=== PATIENT | female | born 1990 | race African-American/Black ===

== ENCOUNTER 2017-04-01 12:02 | Emergency (ER) | payer SELFPAY ==
[2017-04-01 12:08] VITALS: BP 103/68; BMI 23.3
--- NOTE | 2017-04-01 15:04 | DR.GENAD ---
HPI - PCP Primary Care Physician: NFD - Complaint/Symptoms Chief Complaint Doctors Comments: L chest wall pain after draining abscess in ED at [place] a couple of days ago. Chief Complaint:: PATIENT HAD SOMETHING BITE HER SEVERAL WEEKS AGO. SHE WAS SEEN IN [facility] WEDNESDAY NIGHT AND THEY CUT IT BUT SHE STATED IT HURTS AND IS DRAINIING - Nurses notes reviewed Nurses Notes Review: Yes - Source History Provided: Patient - Mode of Arrival Mode of Arrival: Ambulatory - Timing Onset of Chief Complaint: 03/21/17 Came on: Gradually - Duration Duration: Intermittent How lon Duration: Days - Severity Severity: Moderate - Associated Signs and Symptoms Associated Signs and Symptoms: none PMH - PMH Past Medical History: No Past Surgical History: No - Family History History of Family Medical Conditions: No - Social History Does patient currently use any type of tobacco product: Yes Have you used tobacco products in the last 12 months: Yes Type of Tobacco Use: Cigarettes How many years tobacco product used: 2 Does any household member use tobacco: Yes Alcohol Use: Occasionally Do you use any recreational Drugs:: No Lives With: Family Lives Where: Home - infectious screening In the last 2 months have you had wt loss of >10#?: NO Have you had fever, night sweats or hemotysis?: No Have you traveled outside the country in the last 6 months?: No Isolation: Standard ROS - Review of Systems Constitutional: No Symptoms Reported Respiratoy: No Symptoms Reported Cardiovascular: No Symptoms Reported Gastrointestinal/Abdominal: No Symptoms Reported Genitourinary: No Symptoms Reported Neurological: No Symptoms Reported Integumentary: Wound (L chest wall cystic mass) Endocrine: No Symptoms Reported PE - Vital Signs Vitals: Temperature 98.7 F Pulse Rate 74 Respiratory Rate 16 Blood Pressure 103/68 O2 Sat by Pulse Oximetry 100 - General General Appearance: Alert, In No Apparent Distress - Head Head Exam: Normal Inspection - Neck Neck Exam: Normal Inspection, Full ROM - Chest Chest Inspection: Abscess (abscess at lateral third of the clavicle, skin red indurated and TTP with serous drainage) ROR - Labs Reviewed Result Diagrams: 04/01/17 15:20 Laboratory: WBC 4.0 X10^3/uL (3.6-10.0) 04/01/17 15:20 RBC 4.41 X10^6/uL (3.5-5.4) 04/01/17 15:20 Hgb 12.8 g/dL (12.0-16.0) 04/01/17 15:20 Hct 38.2 % (36.0-47.0) 04/01/17 15:20 MCV 86.5 fL (80.0-100.0) 04/01/17 15:20 MCH 29.0 pg (27.0-34.0) 04/01/17 15:20 MCHC 33.5 g/dL (33.0-35.0) 04/01/17 15:20 RDW 16.5 % (11.6-16.5) 04/01/17 15:20 Plt Count 148 X10^3/uL (150.0-450.0) L 04/01/17 15:20 MPV 8.9 fL (7.4-11.0) 04/01/17 15:20 Neut % 35.0 % (42.0-75.0) L 04/01/17 15:20 Lymph % 53.2 % (21.0-51.0) H 04/01/17 15:20 [place] % 9.4 % (0.0-13.0) 04/01/17 15:20 Eos % 1.8 % (0.9-2.9) 04/01/17 15:20 Baso % 0.6 % (0.2-1.0) 04/01/17 15:20 Neut # 1.4 x10^3/uL (2.2-4.8) L 04/01/17 15:20 Lymph # 2.1 X10^3/uL (1.3-2.9) 04/01/17 15:20 [place] # 0.4 x10^3/uL (0.3-0.8) 04/01/17 15:20 Eos # 0.1 x10^3/uL (0.0-0.2) 04/01/17 15:20 Baso # 0.0 X10^3/uL (0.0-0.1) 04/01/17 15:20 Absolute Nucleated RBC 0.0 /100WBC 04/01/17 15:20 - Diagnosis Discharge Problem: Abscess - Discharge Plan Disposition: 01 HOME, SELF-CARE Condition: Stable Prescriptions: Ibuprofen [Motrin Tab 800 mg] 800 mg PO DAILY PRN #30 tab PRN Reason: Pain/Inflammation Sulfamethoxazole-Trimethoprim [BACTRIM DS TAB 800/160 MG *] 1 tab PO BID #20 tab - Follow ups/Referrals Follow ups/Referrals: NFD,None [Primary Care Provider] - 3 days - Instructions Instructions: Abscess, Incision and Drainage, Care After
[2017-04-01] MEDS ORDERED: TORADOL 60 MG VIAL IM ONE (15:06)
[2017-04-01] MEDS ORDERED: LEVAQUIN TAB 500 MG PO STA (15:06)
[2017-04-01] MEDS ORDERED: LEVAQUIN TAB 500 MG ONE (15:17)
[2017-04-01] MEDS ORDERED: TORADOL 60 MG VIAL ONE (15:17)
[2017-04-01 15:31] LABS: BASOPHILS % (AUTO) 0.6 % (0.2-1.0); EOSINOPHILS # (AUTO) 0.1 x10^3/uL (0.0-0.2); EOSINOPHILS % (AUTO) 1.8 % (0.9-2.9); HEMATOCRIT 38.2 % (36.0-47.0); HEMOGLOBIN 12.8 g/dL (12.0-16.0); LYMPHOCYTES # (AUTO) 2.1 X10^3/uL (1.3-2.9); LYMPHOCYTES % (AUTO) 53.2 % (21.0-51.0); MEAN CORPUSCULAR HGB CONC 33.5 g/dL (33.0-35.0); MEAN CORPUSCULAR VOLUME 86.5 fL (80.0-100.0); MEAN PLATELET VOLUME 8.9 fL (7.4-11.0); MONOCYTES # (AUTO) 0.4 x10^3/uL (0.3-0.8); MONOCYTES % (AUTO) 9.4 % (0.0-13.0); NEUTROPHILS # (AUTO) 1.4 x10^3/uL (2.2-4.8); PLATELET COUNT 148 X10^3/uL (150.0-450.0); RED BLOOD COUNT 4.41 X10^6/uL (3.5-5.4); RED CELL DISTRIBUTION WIDTH 16.5 % (11.6-16.5)
== END 2017-04-01 16:03 | disposition home or self-care (01) ==
LOC: ER 12:36
DX: L02.414 Cutaneous abscess of left upper limb (principal)
CPT/HCPCS: 36415; 85025; 87070; 87075; 87077; 87186; 87205; 96372; 99282; J1885